=== PATIENT | male | born 1990 | race Caucasian/White ===

== ENCOUNTER 2020-10-14 19:48 | Emergency (ER) | payer BC ==
[~2020-10-14] VITALS: Ht 162.6 cm; Wt 54.4 kg
[~2020-10-14 19:48] MED LIST: AMOXICILLIN500 M1 PO; NORCO 5-325 TA1 EACH PO
[2020-10-14] MEDS ORDERED: NORCO 10-325 T1 EACH PO (22:00)
[2020-10-14 22:13] VITALS: BP 134/67
== END 2020-10-14 22:13 | disposition home or self-care (01) ==
LOC: ER 19:48
DX: S62.316A Displaced fracture of base of fifth metacarpal bone, right hand, initial encounter for closed fracture (principal); J45.909 Unspecified asthma, uncomplicated; F17.210 Nicotine dependence, cigarettes, uncomplicated; Z88.1 Allergy status to other antibiotic agents; V28.0XXA Motorcycle driver injured in noncollision transport accident in nontraffic accident, initial encounter; Y93.55 Activity, bike riding; Y92.488 Other paved roadways as the place of occurrence of the external cause; Y99.8 Other external cause status